=== PATIENT | female | born 1950 | race Caucasian/White ===

== ENCOUNTER → 2016-10-25 | Outpatient (CLI) | payer BC ==
--- NOTE | ~2016-10-25 | MY11 ---
[facility] A Service of [facility] RADIOLOGY TEXT RESULTS PATIENT: MIGUEL DE LEON LOCATION: [facility] : 54 UNIT #: [id number] AGE: [address]: Vanessa Celeste MD SEX: F ORDER DR: [id number] [facility] [address] [place], [place] [address] [id number] O MR#: [id number] Acc #: [id number] NAME: MIGUEL DE LEON : 1950 SEX: F STUDY DATE/TIME: 10/25/2016 14:41 UNIT: [facility] ROOM: STUDY DESCRIPTION: MY Mammogram Screening Dig Fenrando Attending Physician: Vanessa Celeste M.D. Referring Physician: Vanessa Celeste M.D. Ordering Physician: Vanessa Celeste M.D. Primary Care Physician: Cassy Garcia A.P.R.N. MEDICAL IMAGING REPORT This report is preliminary unless electronic signature is present EXAM Digital screening mammogram 10/25/2016 HISTORY 66-year-old woman, no risk elevation. Annual screen. COMPARISON Mammogram 05/12/2014 FINDINGS Digital imaging of each breast was completed utilizing a two-view examination of each breast in craniocaudal and mediolateral-oblique projections. Review and interpretation of digital mammograms include a second review in conjunction with FDA-approved CAD device. There is a normal parenchymal presentation bilaterally consistent with the patient's age. There are no breast masses imaged and no parenchymal asymmetry is visualized. There are no suspicious microcalcifications and I see no focal architectural disturbance. IMPRESSION Negative screening digital mammogram. One-year followup recommended. ADDENDUM Breast parenchyma is fatty replaced. Patients over the age of 40 are entered into a reminder system with target due date for the next mammogram. A result letter will also be sent to the patient. BIRADS: 1 Negative [facility] A Service of [facility] RADIOLOGY TEXT RESULTS PATIENT: MIGUEL DE LEON LOCATION: [facility] : 54 UNIT #: [id number] AGE: [address]: Vanessa Celeste MD SEX: F ORDER DR: Dictated by... Chandler Vivar M.D. THIS IS AN ELECTRONICALLY VERIFIED REPORT Chandler Vivar M.D. at 10/26/2016 8:06 AM JAMES/mark TD: 10/26/2016 00:06 JOB #: [id number] MEDICAL IMAGING REPORT Page 1 of 1 COPY
== END | disposition home or self-care (01) ==
LOC: CWCC 14:21
DX: Z12.31 Encounter for screening mammogram for malignant neoplasm of breast (principal); R92.8 Other abnormal and inconclusive findings on diagnostic imaging of breast
CPT/HCPCS: G0202